=== PATIENT | female | born 1990 | race Caucasian/White ===

== ENCOUNTER 2017-06-01 08:25 | Emergency (ER) | payer OTHER ==
[2017-06-01 09:56] LABS: microscopic required? YES; urine erythrocyte NEGATIVE (NEGATIVE)
[2017-06-01 10:13] VITALS: BP 115/78
== END 2017-06-01 10:13 | disposition home or self-care (01) ==
LOC: ED 08:25
PROVIDERS: Emergency Medicine
DX: N39.0 Urinary tract infection, site not specified (principal)
CPT/HCPCS: 87804; J1100; J1885; Q0162